=== PATIENT | male | born 1990 | race Caucasian/White ===

== ENCOUNTER 2025-04-08 20:53 | Emergency (ER) | payer MEDICAID, SELFPAY ==
[2025-04-08 20:59] VITALS: BP 145/93; PULSE 95; RESP 18; TEMP 36.9; O2SAT 96; BMI 24.8
--- NOTE | 2025-04-08 21:06 | XR_ITS ---
Examination: PA lateral chest 2 views TECHNIQUE: Upright PA lateral chest 2 views Date and time: April 08, 2025 1916 hours INDICATIONS: Coughing shortness of breath heartburn for 2 days FINDINGS: Significant hyperexpansion Normal heart size No pneumonia or pulmonary edema IMPRESSION: Significant hyperexpansion No pneumonia or pulmonary edema
--- NOTE | 2025-04-08 21:14 | EDNOTE_ITS ---
<Statement entered by Monica Lyon MD - 04/12/25 05:44> As co-signing physician, I was present and available for consult prn. I concur with the plan and care as documented by the midlevel provider. Upper Respiratory Inf. RME/HPI General Chief Complaint: Flu Like Symptoms Stated Complaint: COUGH Time Seen by Provider: 04/08/25 21:06 Arrival date/time: 04/08/25 20:53 34M with history of homelessness and drug use presents to ED with 4 days of cough. Limitations: no limitations Related Data Previous Rx's ?Medication ?Instructions ?Recorded Sulfamethoxazole/Trimethoprim DS * 1 tab PO BID #20 ta bs 08/17/17 (BACTRIM DS *) ibuprofen 600 mg tablet 600 mg PO Q6HR PRN PAIN #25 tabs 08/17/17 sulfamethoxazole 800 1 tab PO Q12H #20 tabs 05/10 mg-trimethoprim 160 mg tablet (Bactrim DS) sulfamethoxazole 800 1 tab PO BID #14 tabs mg-trimethoprim 160 mg tablet (Bactrim DS) Allergies Allergy/AdvReac Type Severity Reaction Status Date / Time povidone-iodine Allergy Mild Rash Verified 04/08/25 20:54 Review of Systems Review of Systems Systems Reviewed: All systems reviewed, normal except as documented Constitutional Constitutional: Reports system reviewed and no additional complaints, except as documented, Denies fever(s) and Denies headache(s) ENT Ears, Nose, Mouth, and Throat: Denies disequilibrium and Denies headache(s) Cardiovascular Cardiovascular: Reports system reviewed and no additional complaints, except as documented, Denies chest pain and Denies dyspnea Respiratory Respiratory: Reports system reviewed and no additional complaints, except as documented, Reports as per HPI, Reports cough and Denies dyspnea Gastrointestinal Gastrointestinal: Reports system reviewed and no additional complaints, except as documented, Denies abdominal pain, Denies nausea and Denies vomiting Neurologic Neurologic: Reports system reviewed and no additional complaints, except as documented, Denies confusion, Denies disequilibrium and Denies headache(s) Psychiatric Psychiatric: Denies confusion Past Medical History Past Medical History CARDIAC: Negative Congestive Heart Failure RESPIRATORY: Negative Chronic Obstructive Pulmonary Disease (COPD) GENITOURINARY: Negative Renal Disease ENDOCRINE: Negative Diabetes Mellitus Type 1 or Diabetes Mellitus Type 2 Social History SMOKING STATUS: Current every day smoker SUBSTANCE USE: does not use ED Exam General Limitations: Present no limitations General appearance: Present alert and in no apparent distress Head Head exam: Present atraumatic Eye Eye exam: Present normal appearance, PERRL and EOMI ENT ENT exam: Present normal exam, normal oropharynx and mucous membranes moist Neck Neck exam: Present normal inspection, full ROM and trachea midline Chest Chest inspection: Present normal inspection and symmetric chest wall rise Respiratory Respiratory exam: Present normal lung sounds bilaterally Cardiovascular Cardiovascular exam: Present regular rate, normal rhythm and normal heart sounds Abdominal Exam Abdominal exam: Present soft and normal bowel sounds Extremities Exam Extremities exam: Present normal inspection and full ROM Back Exam Back exam: Present normal inspection and full ROM Neurological Exam Neurological exam: Present alert, oriented X3 and CN II-XII intact Psychiatric Psychiatric exam: Present normal affect and normal mood Skin Skin exam: Present warm, dry, intact and normal color Course Quality Measures none Orders Category Date Time Status Bedside COVID-19 Antigen Test NOW Care 04/08/25 21:06 Active Bedside Influenza A&B Antigen Test NOW Care 04/08/25 21:06 Completed XR chest 2V Stat Exams 04/08/25 21:06 Completed Vital Signs Vital signs: Vital Signs Temperature 98.5 F 04/08/25 20:59 Pulse Rate 95 04/08/25 20:59 Respiratory Rate 18 04/08/25 20:59 Blood Pressure 145/93 H 04/08/25 20:59 Pulse Oximetry (%) 96 04/08/25 20:59 Oxygen Delivery Method Room Air 04/08/25 20:59 O2 at 96% on RA and WNLs Upper Respiratory Infection MDM Narrative MDM Narrative:: 34M with history of homelessness and drug use presents to ED with 4 days of cough. Physical exam reveals clear lungs. Normal WOB. Patient is afebrile, calm, and alert. Patient eloped. Patient data External records reviewed:: [facility] previous records Clinical information provided by:: patient Social determinants that could affect healthcare access:: housing Patient has the following chronic illnesses:: homelessness/drug use How is presenting disease/condition affected by chronic disease/condition?: exacerbated by Evaluation data The following diagnostics were reviewed and interpreted by me:: lab results and radiology exam(s) Lab and/or radiology exams considered but not ordered:: ordered Interpretation Summary: above Medications / Prescriptions Medications or Prescriptions considered but not ordered:: not ordered Medication administrations:: n/a Consultations Consultation(s) initiated? (list below): No Diagnosis Upper Respiratory Differential Diagnosis: upper respiratory infection, croup, otitis media, sinusitis, viral infection, bronchitis, influenza, pharyngitis and other (CAP) Most likely diagnosis given after review of the tests above:: URI Admission Indicated Admission indicated?: not indicated Admission Request Was there a request for admission?: No Disposition Plan Disposition Plan: other (specify) (eloped) Discharge Plan Plan Patient Disposition: Elopement Prescriptions/Referrals Prescriptions/Med Rec: No Action ibuprofen 600 MG tablet 600 mg PO Q6HR PRN (Reason: PAIN) Qty: 25 0RF Sulfamethoxazole/Trimethoprim DS * (BACTRIM DS *) 1 TAB tablet 1 tab PO BID Qty: 20 0RF sulfamethoxazole-trimethoprim [Bactrim DS] 800-160 mg tablet 1 tab PO Q12H Qty: 20 0RF sulfamethoxazole-trimethoprim [Bactrim DS] 800-160 mg tablet 1 tab PO BID Qty: 14 0RF Referrals: No Primary/Family,Physician [Primary Care Provider] - In 1 week Problem List Clinical Impression: Upper respiratory infection Patient/Caregiver Discharge Instructions Print Language: [place]i PA/PROSTHETIC ASSISTANT Supervising Physician PA/PROSTHETIC ASSISTANT Supervising Physician: Dr. Lyon
--- NOTE | 2025-04-08 22:02 | PC.NURSE ---
PT WAS AT [facility], PROVIDER IS LOOKING FOR HIM, NO ANSWER AT ER LOBBY OR OUTSIDE ER.
--- NOTE | 2025-04-08 22:03 | PC.NURSE ---
SECURITY INFORMED ME THAT PT LEFT ER.
== END 2025-04-08 22:04 | disposition left against medical advice (07) ==
PROVIDERS: Emergency Provider Emergency Medicine
DX: J06.9 Acute upper respiratory infection, unspecified (principal); F17.210 Nicotine dependence, cigarettes, uncomplicated; Z53.29 Procedure and treatment not carried out because of patient's decision for other reasons
CPT/HCPCS: 71046; 87400; 87811; 99283